=== PATIENT | female | born 1950 | race Caucasian/White ===

== ENCOUNTER → 2017-01-04 | Outpatient (CLI) | payer OTHER ==
[~2017-01-04] MED LIST: DIAZ5TAB PO; EMPA1TAB3 PO; LISI1TAB5 PO; PROP120C3 PO; SIMV20TA3 PO
[2017-01-04 09:44] LABS: HEMOGLOBIN 15.5 g/dL (11.7-16.4)
[2017-01-04 09:55] LABS: BLOOD UREA NITROGEN 17 mg/dL (7-18)
[2017-01-04 09:59] LABS: ASPARTATE AMINO TRANSFERASE 12 U/L (15-37)
== END | disposition home or self-care (01) ==
LOC: STAR 08:51
PROVIDERS: ATTEND Colon & Rectal Surgery
DX: Z01.818 Encounter for other preprocedural examination (principal)
CPT/HCPCS: 36415; 71020; 80053; 85025; 93005

== ENCOUNTER 2017-01-17 06:14 | Inpatient (IN) | payer OTHER ==
[~2017-01-17] VITALS: Ht 170.2 cm; Wt 86.8 kg
[2017-01-17] MEDS ORDERED: LACTATED RINGERS 1,000 ML IV SCH (06:43)
[2017-01-17 06:44] VITALS: BP 136/85
[2017-01-17] MEDS ORDERED: MIDAZOLAM 1 MG/ML, 2ML ONE (06:45)
[2017-01-17] MEDS ORDERED: FENTANYL PF 250 MCG/5ML ONE (06:45)
[2017-01-17] MEDS ORDERED: PNEUMOCOCCAL 23 VACCINE IM-VACC ONE (07:00)
[2017-01-17] MEDS ORDERED: ONDANSETRON 2MG/ML, 2ML IVPush PRN (07:30)
[2017-01-17] MEDS ORDERED: METOCLOPRAMIDE 5 MG/ML, 2ML IV PRN (07:30)
[2017-01-17] MEDS ORDERED: PROMETHAZINE 25 MG/ML, 1ML IV PRN (07:30)
[2017-01-17] MEDS ORDERED: MEPERIDINE/PF 25MG/0.5ML IVPush PRN (07:30)
[2017-01-17] MEDS ORDERED: LABETALOL 5MG/ML, 20ML IV PRN (07:30)
[2017-01-17] MEDS ORDERED: OXYcodone 5 MG/5 ML ORAL.SOL UDC PO PRN (07:30)
[2017-01-17] MEDS ORDERED: HYDROmorphone 1 MG/ML, 1ML IV PRN (07:30)
[2017-01-17] MEDS ORDERED: hydrALAzine 20 MG/ML, 1ML IV PRN (07:30)
[2017-01-17] MEDS ORDERED: NEOSTIGMINE 1 MG/ML, 10ML ONE (07:35)
[2017-01-17] MEDS ORDERED: ONDANSETRON 2MG/ML, 2ML ONE (07:35)
[2017-01-17] MEDS ORDERED: PROPOFOL 10 MG/ML, 20ML ONE (07:35)
[2017-01-17] MEDS ORDERED: GLYCOPYRROLATE 0.2MG/1ML ONE (07:35)
[2017-01-17] MEDS ORDERED: CEFOTETAN 2 GM ONE (07:35)
[2017-01-17] MEDS ORDERED: ROCURONIUM 10 MG/ML ONE (07:35)
[2017-01-17] MEDS ORDERED: BUPIVACAINE/PF-EPI 0.25% 1:200K INFIL ONE (08:28)
[2017-01-17] MEDS ORDERED: THROMBIN 5,000 UNIT VIAL TP ONE (09:01)
[2017-01-17] MEDS ORDERED: FENTANYL PF 100 MCG/2ML ONE (11:20)
[2017-01-17] MEDS ORDERED: OXYcodone 5 MG/5 ML ORAL.SOL UDC ONE (11:20)
[2017-01-17] MEDS: FENTANYL PF 100 MCG/2ML IV PRN ×2 (11:23→11:32)
[2017-01-17] MEDS ORDERED: INSULIN REGULAR 100 UNITS/ML, 3ML VIAL SQ-INSULIN STA (11:31)
[2017-01-17] MEDS ORDERED: INSULIN SINGLE DOSE, ER SQ-INSULIN ONE (11:31)
[2017-01-17] MEDS ORDERED: LORazepam 1MG TABLET PO PRN (12:30)
[2017-01-17] MEDS ORDERED: morphine SULFATE 10 MG/ML, 1ML IV PRN (12:30)
[2017-01-17] MEDS ORDERED: DIPHENHYDRAMINE 50 MG/ML, 1ML IV PRN (12:30)
[2017-01-17] MEDS ORDERED: LORazepam 2 MG/ML, 1ML IV PRN (12:30)
[2017-01-17] MEDS ORDERED: ONDANSETRON 2MG/ML, 2ML IV PRN (12:30)
[2017-01-17] MEDS ORDERED: DIPHENHYDRAMINE 25 MG CAPSULE PO PRN (12:30)
[2017-01-17] MEDS: POTASSIUM CHLORIDE 20 MEQ in SODIUM CHLORIDE 0.9% 1,000 ML IV SCH (15:02)
[2017-01-17] MEDS: OXYcodone/APAP 5/325MG TABLET PO PRN ×2 (16:25→21:03)
[2017-01-17] MEDS: INSULIN ASPART 100 UNITS/ML, PEN SQ-INSULIN SCH ×2 (17:20→21:02)
[2017-01-17 20:00] VITALS: BP 107/68
[2017-01-17] MEDS: CEFOTETAN PMX 2GM/50ML 50 ML IVPB SCH (20:51)
[2017-01-17] MEDS: SIMVASTATIN 10 MG TABLET PO SCH (21:03)
[2017-01-17] MEDS: ENOXAPARIN 40 MG/0.4 ML SQ SCH (21:05)
[2017-01-18] MEDS: OXYcodone/APAP 5/325MG TABLET PO PRN ×2 (01:52→08:17)
[2017-01-18 02:00] VITALS: BP 116/68
[2017-01-18 06:24] LABS: BLOOD UREA NITROGEN 11 mg/dL (7-18)
[2017-01-18 07:53] VITALS: BP 117/75
[2017-01-18] MEDS: CEFOTETAN PMX 2GM/50ML 50 ML IVPB SCH (08:03)
[2017-01-18] MEDS: HYDROCHLOROTHIAZIDE 12.5 MG CAPSULE PO SCH (08:03)
[2017-01-18] MEDS: PROPRANOLOL 120 MG CAP.SA.24H PO SCH (08:04)
[2017-01-18] MEDS: INSULIN ASPART 100 UNITS/ML, PEN SQ-INSULIN SCH ×4 (08:04→21:23)
[2017-01-18] MEDS: LISINOPRIL 20 MG TABLET PO SCH (08:05)
[2017-01-18] MEDS: DIAZEPAM 5 MG TABLET PO PRN ×2 (11:11→19:26)
[2017-01-18] MEDS: POTASSIUM CHLORIDE 20 MEQ in SODIUM CHLORIDE 0.9% 1,000 ML IV SCH (12:13)
[2017-01-18] MEDS: KETOROLAC 30 MG/1 ML IV PRN ×2 (12:55→21:22)
[2017-01-18 14:21] VITALS: BP 95/61
[2017-01-18 19:01] VITALS: BP 126/78
[2017-01-18] MEDS: SIMVASTATIN 10 MG TABLET PO SCH (19:26)
[2017-01-18] MEDS: ENOXAPARIN 40 MG/0.4 ML SQ SCH (19:26)
[2017-01-19 03:10] VITALS: BP 100/62
[2017-01-19] MEDS: DIAZEPAM 5 MG TABLET PO PRN ×2 (04:45→14:08)
[2017-01-19] MEDS: KETOROLAC 30 MG/1 ML IV PRN (06:52)
[2017-01-19 07:50] VITALS: BP 131/79
[2017-01-19] MEDS: INSULIN ASPART 100 UNITS/ML, PEN SQ-INSULIN SCH ×2 (08:10→11:00)
[2017-01-19] MEDS: POTASSIUM CHLORIDE 20 MEQ in SODIUM CHLORIDE 0.9% 1,000 ML IV SCH (08:14)
[2017-01-19] MEDS ORDERED: OXYC-302 PO (09:12)
[2017-01-19 09:26] LABS: BLOOD UREA NITROGEN 9 mg/dL (7-18)
[2017-01-19] MEDS: LISINOPRIL 20 MG TABLET PO SCH (10:18)
[2017-01-19] MEDS: PROPRANOLOL 120 MG CAP.SA.24H PO SCH (10:18)
[2017-01-19] MEDS: HYDROCHLOROTHIAZIDE 12.5 MG CAPSULE PO SCH (10:18)
[2017-01-19] MEDS: OXYcodone/APAP 5/325MG TABLET PO PRN (14:09)
[2017-01-19 14:30] VITALS: BP 120/61
== END 2017-01-19 14:43 | disposition home or self-care (01) | DRG 331 ==
LOC: ORIP 06:14 → 4NOR 12:17
PROVIDERS: ADMIT Colon & Rectal Surgery; ATTEND Colon & Rectal Surgery
PROC: 0DTN4ZZ Resection of Sigmoid Colon, Percutaneous Endoscopic Approach (ICD-10-PCS; 2017-01-17)
PROC: 8E0W4CZ Robotic Assisted Procedure of Trunk Region, Percutaneous Endoscopic Approach (ICD-10-PCS; 2017-01-17)
PROC: 0DBP4ZZ Excision of Rectum, Percutaneous Endoscopic Approach (ICD-10-PCS; principal; 2017-01-17 07:30)
DX: K57.92 Diverticulitis of intestine, part unspecified, without perforation or abscess without bleeding (principal); F41.9 Anxiety disorder, unspecified; E11.9 Type 2 diabetes mellitus without complications; I10 Essential (primary) hypertension; Z79.899 Other long term (current) drug therapy; Z80.42 Family history of malignant neoplasm of prostate; Z82.49 Family history of ischemic heart disease and other diseases of the circulatory system; Z83.3 Family history of diabetes mellitus; Z83.49 Family history of other endocrine, nutritional and metabolic diseases; Z87.891 Personal history of nicotine dependence
CPT/HCPCS: 36415; 80048; 82040; 82962; 83735; 85025; 86850; 86900; 88307; J1650; J1815; J1885; J2250; J2405; J2704; J2710; J3010; J3480; J3490; J2270; J7030; J7120; S0074